=== PATIENT | female | born 1990 | race Caucasian/White ===

== ENCOUNTER 2019-09-21 08:17 | Inpatient (IN) | payer OTHER ==
[~2019-09-21] VITALS: Ht 162.6 cm; Wt 129.7 kg
[2019-09-21] MEDS ORDERED: PRENATAL CAPLE1 EAC1 PO (10:31)
== END 2019-09-23 10:53 | disposition home or self-care (01) | DRG 832 ==
LOC: LDR 08:17
PROVIDERS: ADMIT Obstetrics & Gynecology
PROC: 4A033R1 Measurement of Arterial Saturation, Peripheral, Percutaneous Approach (ICD-10-PCS; principal; 2019-09-21)
DX: O99.512 Diseases of the respiratory system complicating pregnancy, second trimester (principal); J45.902 Unspecified asthma with status asthmaticus

== ENCOUNTER 2020-01-17 09:14 | Outpatient (CLI) | payer OTHER ==
[~2020-01-17 09:14] MED LIST: PRENATAL CAPLE1 EAC1 PO
== END 2020-01-17 10:29 | disposition home or self-care (01) ==
LOC: NST 09:14
DX: Z34.83 Encounter for supervision of other normal pregnancy, third trimester (principal)

== ENCOUNTER 2020-01-24 12:00 | Inpatient (IN) | payer OTHER ==
[~2020-01-24] VITALS: Ht 162.6 cm; Wt 2.7 kg
[2020-02-14] MEDS ORDERED: VALTREX1000 MG PO (16:22)
[2020-02-14] MEDS ORDERED: SYNTHROID75 MCG PO (16:22)
[2020-02-14] MEDS ORDERED: PRENATAL TABLE1 EAC1 PO (16:22)
== END 2020-02-17 13:56 | disposition home or self-care (01) | DRG 788 ==
LOC: LDR 02-14 15:00 → OB/GYN 02-15 12:30 → O/R 02-15 16:08 → OB/GYN 02-15 17:24
PROVIDERS: ADMIT Obstetrics & Gynecology; ATTEND Obstetrics & Gynecology
PROC: 4A1HXFZ Monitoring of Products of Conception, Cardiac Rhythm, External Approach (ICD-10-PCS; 2020-02-15)
PROC: 3E033VJ Introduction of Other Hormone into Peripheral Vein, Percutaneous Approach (ICD-10-PCS; 2020-02-15)
PROC: 10D00Z1 Extraction of Products of Conception, Low, Open Approach (ICD-10-PCS; principal; 2020-02-15 15:30)
DX: O61.0 Failed medical induction of labor (principal); Z3A.40 40 weeks gestation of pregnancy; Z37.0 Single live birth

== ENCOUNTER 2020-02-07 09:06 | Outpatient (CLI) | payer OTHER | END 2020-02-07 10:03 | disposition home or self-care (01) | LOC: NST 09:06 | PROVIDERS: ATTEND Obstetrics & Gynecology Maternal & Fetal Medicine | DX: Z34.83 Encounter for supervision of other normal pregnancy, third trimester (principal) ==

== ENCOUNTER 2020-02-13 09:10 | Outpatient (CLI) | payer OTHER ==
[2020-02-14] MEDS ORDERED: VALTREX1000 MG PO (16:22)
[2020-02-14] MEDS ORDERED: SYNTHROID75 MCG PO (16:22)
[2020-02-14] MEDS ORDERED: PRENATAL TABLE1 EAC1 PO (16:22)
== END 2020-02-13 09:53 | disposition home or self-care (01) ==
LOC: NST 09:10
PROVIDERS: ATTEND Obstetrics & Gynecology
DX: Z34.83 Encounter for supervision of other normal pregnancy, third trimester (principal)

== ENCOUNTER 2024-10-06 10:38 | Outpatient (CLI) | payer OTHER ==
[~2024-10-06 10:38] MED LIST changes: +PRENATAL TABLE1 EAC1 PO; +SYNTHROID75 MCG PO; +VALTREX1000 MG PO
== END 2024-10-06 11:39 | disposition home or self-care (01) ==
LOC: NST 10:38
PROVIDERS: ATTEND Obstetrics & Gynecology Maternal & Fetal Medicine
DX: Z3A.33 33 weeks gestation of pregnancy (principal)

== ENCOUNTER 2024-10-20 10:46 | Outpatient (CLI) | payer OTHER | END 2024-10-20 11:40 | disposition home or self-care (01) | LOC: NST 10:46 | PROVIDERS: ATTEND Obstetrics & Gynecology | DX: Z3A.35 35 weeks gestation of pregnancy (principal) ==

== ENCOUNTER 2024-11-09 09:30 | Inpatient (IN) | payer OTHER ==
[~2024-11-09] VITALS: Ht 162.6 cm; Wt 2.7 kg
[2024-11-09 11:07] LABS: HEMATOCRIT 36.5 % (36.0-45.00); HEMOGLOBIN 12.4 g/dL (12.0-15.00); MEAN CELL VOLUME 87.5 fL (80.00-100.00); MEAN CORPUSCULAR HEMOGLOBIN 29.8 pg (27.00-32.0); PLATELET COUNT 246 K/uL (150-450); RED BLOOD COUNT 4.17 M/uL (4.00-6.00); RED CELL DISTRIBUTION WIDTH 14.1 % (11.5-14.5)
[2024-11-09 11:18] LABS: PARTIAL THROMBOPLASTIN TIME 26.4 SECONDS (22.0-34.0); PROTHROMBIN TIME 10.9 SECONDS (9.0-11.5)
[2024-11-09 11:56] LABS: ALBUMIN 2.7 gm/dL (3.4-5.0); BILIRUBIN TOTAL 0.37 mg/dL (0.3-1.2); CALCIUM 8.8 mg/dL (8.5-10.1); CREATININE SERUM 0.5 mg/dL (0.55-1.02); GFR 141.23; GLOBULINA 3.7 G/DL (2.4-3.5); POTASSIUM 3.72 mEq/L (3.5-5.1); TOTAL PROTEIN 6.4 gm/dL (6.4-8.2)
[2024-11-16 06:08] VITALS: BP 91/60
[2024-11-16] MEDS ORDERED: CEFAZOLIN SODIUM 1,000 MG VIAL ONE (07:05)
[2024-11-16] MEDS ORDERED: CITRIC ACID/SODIUM CITRATE 30 ML BLIST.PACK PO ONE (07:05)
[2024-11-16] MEDS ORDERED: MORPHINE SULFATE 4 MG/ML CARTRIDGE IV PRN (08:45)
[2024-11-16] MEDS ORDERED: OXYTOCIN 1,000 ML IV ONE (08:45)
[2024-11-16] MEDS ORDERED: RINGERS SOLUTION,LACTATED 1,000 ML IV SCH (08:45)
[2024-11-16] MEDS ORDERED: GABAPENTIN 300 MG CAPSULE PO SCH (09:00)
[2024-11-16] MEDS ORDERED: SIMETHICONE 125 MG CAPSULE PO SCH (09:00)
[2024-11-16] MEDS ORDERED: DOCUSATE SODIUM 100MG CAP PO SCH (09:00)
[2024-11-16] MEDS ORDERED: HYDROGEN PEROXIDE 473 ML BOTTLE TOP ONE (09:04)
[2024-11-16] MEDS ORDERED: MORPHINE SULFATE 4 MG/ML VIAL IV ONE (10:40)
[2024-11-16] MEDS ORDERED: KETOROLAC TROMETHAMINE 30 MG VIAL ONE (10:51)
[2024-11-16] MEDS ORDERED: OXYTOCIN 10 UNITS/ML VIAL ONE (10:58)
[2024-11-16 11:42] VITALS: BP 99/63
[2024-11-16] MEDS ORDERED: ONDANSETRON HCL 2 MG/ML VIAL IV SCH (12:00)
[2024-11-16] MEDS ORDERED: KETOROLAC TROMETHAMINE 30 MG VIAL IV SCH (12:00)
[2024-11-16] MEDS ORDERED: ACETAMINOPHEN 500 MG GEL..CAP PO SCH (12:00)
[2024-11-16 16:43] VITALS: BP 100/63
[2024-11-17 00:17] VITALS: BP 103/68
[2024-11-17 07:00] VITALS: BP 102/66
[2024-11-17 07:19] LABS: HEMATOCRIT 32.2 % (36.0-45.00); HEMOGLOBIN 10.9 g/dL (12.0-15.00); MEAN CELL VOLUME 88.4 fL (80.00-100.00); MEAN CORPUSCULAR HEMOGLOBIN 29.8 pg (27.00-32.0); MEAN CORPUSCULAR HGB CONC 33.7 g/dl (32.0-36.0); PLATELET COUNT 201 K/uL (150-450); RED BLOOD COUNT 3.65 M/uL (4.00-6.00)
[2024-11-17] MEDS ORDERED: KETOROLAC TROMETHAMINE 10 MG TABLET PO SCH (08:00)
[2024-11-17] MEDS ORDERED: OxyCODONE HCL 5 MG TABLET (ROXICODONE) PO PRN (08:00)
[2024-11-17 11:00] VITALS: BP 118/78
[2024-11-17] MEDS ORDERED: ERYTHROMYCIN BASE OPHT 1GM EACH TUBE OP ONE (12:00)
[2024-11-17] MEDS ORDERED: OXYTOCIN 10 UNITS/ML VIAL IV ONE (12:00)
[2024-11-17 15:00] VITALS: BP 107/73
[2024-11-18 03:16] VITALS: BP 100/85
[2024-11-18] MEDS ORDERED: OxyCODONE HCL 5 MG TABLET (ROXICODONE) PO PRN (06:00)
[2024-11-18 08:19] VITALS: BP 120/68
== END 2024-11-18 16:05 | disposition home or self-care (01) | DRG 788 ==
LOC: OB/GYN 11-16 05:30 → O/R 11-16 05:30 → OB/GYN 11-16 07:00
PROVIDERS: Obstetrics & Gynecology; ADMIT Obstetrics & Gynecology; ATTEND Obstetrics & Gynecology
PROC: 4A1HXCZ Monitoring of Products of Conception, Cardiac Rate, External Approach (ICD-10-PCS; 2024-11-16)
PROC: 10D00Z1 Extraction of Products of Conception, Low, Open Approach (ICD-10-PCS; principal; 2024-11-16 07:00)
DX: O34.211 Maternal care for low transverse scar from previous cesarean delivery (principal); Z3A.39 39 weeks gestation of pregnancy; Z37.0 Single live birth

== ENCOUNTER 2024-11-10 09:47 | Outpatient (CLI) | payer OTHER | END 2024-11-10 10:35 | disposition home or self-care (01) | LOC: NST 09:47 | PROVIDERS: ATTEND Obstetrics & Gynecology | DX: Z34.83 Encounter for supervision of other normal pregnancy, third trimester (principal) ==